=== PATIENT | female | born 1945 | race Caucasian/White ===

== ENCOUNTER 2016-11-29 19:40 | Emergency (ER) | payer MEDICARE, OTHER ==
--- NOTE | 2016-11-29 20:07 | ER Document Report ---
ED Medical Screen (RME) - General Stated Complaint: BLOOD PRESSURE ISSUE Mode of Arrival: Wheelchair Information source: Patient Notes: Pt's blood pressure has been up and down over the past several days. On 2016 patient added to her blood pressure medication regimen, patient added an increased dose of Lopressor from 25-50 mg twice a day. Patient additionally takes Micardis in the morning. Patient complains of headache and generalized weakness. Patient reports headache off and on for one week. Last night bp 192/ 70, normally pt has 135/70 bp. hx: Hypertension, emphysema, asthma, COPD I have greeted and performed a rapid initial assessment of this patient. A comprehensive ED assessment and evaluation of the patient, analysis of test results and completion of the medical decision making process will be conducted by additional ED providers. TRAVEL OUTSIDE OF THE [place] IN LAST 30 DAYS: No - Related Data Allergies/Adverse Reactions: fentanyl [Fentanyl] Allergy (Verified 03/13/15 09:57) incorrect entry hydralazine HCl [From Apresoline] Allergy (Verified 11/28/13 17:27) levofloxacin [From Levaquin] Allergy (Verified 11/28/13 17:27) sulfamethoxazole [From Septra DS] Allergy (Verified 11/28/13 17:27) trimethoprim [From Septra DS] Adverse Reaction (Verified 11/28/13 17:27) Feronal Allergy (Uncoded 03/13/15 09:57) Past Medical History - Past Medical History Cardiac Medical History: Reports: Hx Hypercholesterolemia, Hx Hypertension, Hx Heart Murmur - mild Denies: Hx Heart Attack Pulmonary Medical History: Reports: Hx Asthma, Hx Bronchitis, Hx COPD Denies: Hx Tuberculosis Neurological Medical History: Denies: Hx Cerebrovascular Accident, Hx Seizures GI Medical History: Reports: Hx Gastroesophageal Reflux Disease. Denies: Hx Hepatitis, Hx Hiatal Hernia, Hx Ulcer Musculoskeltal Medical History: Reports Hx Arthritis Psychiatric Medical History: Reports: Hx Depression Infectious Medical History: Denies: Hx Hepatitis Past Surgical History: Reports: Hx Appendectomy, Hx Section - x 2, Hx Tubal Ligation. Denies: Hx Mastectomy, Hx Open Heart Surgery, Hx Pacemaker - Immunizations Hx Diphtheria, Pertussis, Tetanus Vaccination: Yes Physical Exam - Neurological Cognition: Normal [place] Coma Scale Eye Opening: Spontaneous [place] Coma Scale Verbal: Oriented [place] Coma Scale Motor: Obeys Commands [place] Coma Scale Total: 15 Course - Re-evaluation Re-evalutation: 11/29/16 20:[address] Van regarding patient presentation, agrees with plan for CT imaging of the head given history of headaches and hypertension
[2016-11-29 21:45] LABS: ABSOLUTE BASOPHILS # (AUTO) 0.1 10^3/uL (0.0-0.2); ABSOLUTE EOSINOPHILS # (AUTO) 0.2 10^3/uL (0.0-0.6); ABSOLUTE LYMPHOCYTES (AUTO) 1.8 10^3/uL (0.5-4.7); ABSOLUTE MONOCYTES (AUTO) 0.5 10^3/uL (0.1-1.4); ABSOLUTE NEUT (AUTO) 3.3 10^3/uL (1.7-8.2); EOSINOPHILS % (AUTO) 2.6 % (0-6); HEMATOCRIT 37.8 % (36.0-47.0); HEMOGLOBIN 12.4 g/dL (12.0-15.5); HGB HCT DIFFERENCE -0.6; LYMPHOCYTES % (AUTO) 31.3 % (13-45); MEAN CORPUSCULAR HEMOGLOBIN 27.7 pg (27.0-33.4); MEAN CORPUSCULAR HGB CONC 32.7 g/dL (32.0-36.0); MEAN CORPUSCULAR VOLUME 85 fl (80-97); MONOCYTES % (AUTO) 9.3 % (3-13); RED BLOOD COUNT 4.46 10^6/uL (3.72-5.28); SEGMENTED NEUTROPHILS % (AUTO) 55.8 % (42-78); WHITE BLOOD COUNT 5.9 10^3/uL (4.0-10.5)
[2016-11-29 22:09] LABS: ALANINE AMINOTRANSFERASE 34 U/L (9-52); ALBUMIN 3.9 g/dL (3.5-5.0); ALKALINE PHOSPHATASE 68 U/L (38-126); ANION GAP 8 (5-19); ASPARTATE AMINO TRANSFERASE 28 U/L (14-36); BILIRUBIN,TOTAL 0.5 mg/dL (0.2-1.3); BLOOD UREA NITROGEN 15 mg/dL (7-20); CALCIUM 9.2 mg/dL (8.4-10.2); CARBON DIOXIDE 32 mmol/L (22-30); CHLORIDE 99 mmol/L (98-107); CREATININE RESULT 0.71 mg/dL (0.52-1.25); GLUCOSE 103 mg/dL (75-110); POTASSIUM 4.1 mmol/L (3.6-5.0); SODIUM 139.1 mmol/L (137-145); TOTAL PROTEIN 6.6 g/dL (6.3-8.2)
[2016-11-30 03:33] LABS: APPEARANCE,URINE CLEAR; BILIRUBIN,URINE NEGATIVE (NEGATIVE); GLUCOSE, URINE NEGATIVE (NEGATIVE); KETONES,URINE NEGATIVE (NEGATIVE); LEUKOCYTE ESTERASE,URINE NEGATIVE (NEGATIVE); NITRITE,URINE NEGATIVE (NEGATIVE); PROTEIN,URINE NEGATIVE (NEGATIVE); URINE SPECIFIC GRAVITY 1.006; UROBILINOGEN,URINE NEGATIVE mg/dL (<2.0)
[2016-11-30] MEDS ORDERED: CLONIDINE HCL 0.2 MG TABLET PO ONE (04:21)
--- NOTE | 2016-11-30 04:22 | ER Document Report ---
ED Blood Pressure Problem - General Chief Complaint: Blood Pressure Problem Stated Complaint: BLOOD PRESSURE ISSUE Time seen by provider: 04:21 Mode of Arrival: Wheelchair Information source: Patient TRAVEL OUTSIDE OF THE [place] IN LAST 30 DAYS: No - HPI Patient complains to provider of: High blood pressure Onset: Other - 2-3 days Onset/Duration: Waxing and waning Quality of pain: Achy Severity: Mild Pain Level: 1 Problem is: Chronic problem Pt currently taking medication for problem: Yes Associated symptoms: Headache Similar symptoms previously: Yes Recently seen / treated by doctor: Yes Notes: Patient is a 71-year-old female who presents to the emergency room complaining of high blood pressure, it is fluctuating over the past week, with higher readings than normal, she saw her primary care provider on and was advised to increase her Lopressor to 25 mg twice daily, she was previously on it once daily, she also takes Micardis, she complains of a mild frontal headache , no chest pain or shortness of breath - Related Data Allergies/Adverse Reactions: fentanyl [Fentanyl] Allergy (Verified 03/13/15 09:57) incorrect entry hydralazine HCl [From Apresoline] Allergy (Verified 11/28/13 17:27) levofloxacin [From Levaquin] Allergy (Verified 11/28/13 17:27) sulfamethoxazole [From Septra DS] Allergy (Verified 11/28/13 17:27) trimethoprim [From Septra DS] Adverse Reaction (Verified 11/28/13 17:27) Feronal Allergy (Uncoded 03/13/15 09:57) Past Medical History - General Information source: Patient - Social History Smoking Status: Unknown if Ever Smoked Family History: CAD Patient has suicidal ideation: No Patient has homicidal ideation: No - Past Medical History Cardiac Medical History: Reports: Hx Hypercholesterolemia, Hx Hypertension, Hx Heart Murmur - mild Denies: Hx Heart Attack Pulmonary Medical History: Reports: Hx Asthma, Hx Bronchitis, Hx COPD Denies: Hx Tuberculosis Neurological Medical History: Denies: Hx Cerebrovascular Accident, Hx Seizures Renal/ Medical History: Denies: Hx Peritoneal Dialysis GI Medical History: Reports: Hx Gastroesophageal Reflux Disease. Denies: Hx Hepatitis, Hx Hiatal Hernia, Hx Ulcer Musculoskeltal Medical History: Reports Hx Arthritis Psychiatric Medical History: Reports: Hx Depression Infectious Medical History: Denies: Hx Hepatitis Past Surgical History: Reports: Hx Appendectomy, Hx Section - x 2, Hx Tubal Ligation. Denies: Hx Mastectomy, Hx Open Heart Surgery, Hx Pacemaker - Immunizations Hx Diphtheria, Pertussis, Tetanus Vaccination: Yes Hx Pneumococcal Vaccination: 10/24/14 Review of Systems - Review of Systems Constitutional: No symptoms reported EENT: No symptoms reported Cardiovascular: No symptoms reported Respiratory: No symptoms reported Gastrointestinal: No symptoms reported Genitourinary: No symptoms reported Female Genitourinary: No symptoms reported Musculoskeletal: No symptoms reported Skin: No symptoms reported Hematologic/Lymphatic: No symptoms reported Neurological/Psychological: Headaches -: Yes All other systems reviewed and negative Physical Exam - Vital signs Vitals: Temp Pulse Resp BP Pulse Ox 97.9 F 69 20 169/65 H 100 11/29/16 19:58 11/29/16 19:58 11/29/16 19:58 11/29/16 19:58 11/29/16 19:58 Interpretation: Hypertensive - General General appearance: Appears well, Alert - HEENT Head: Normocephalic, Atraumatic Eyes: Normal Pupils: PERRL - Respiratory Respiratory status: No respiratory distress Chest status: Nontender Breath sounds: Normal Chest palpation: Normal - Cardiovascular Rhythm: Regular Heart sounds: Normal auscultation Murmur: No - Abdominal Inspection: Normal Distension: No distension Bowel sounds: Normal Tenderness: Nontender Organomegaly: No organomegaly - Back Back: Normal, Nontender - Extremities General upper extremity: Normal inspection, Nontender, Normal color, Normal ROM , Normal temperature General lower extremity: Normal inspection, Nontender, Normal color, Normal ROM , Normal temperature, Normal weight bearing. No: Nazario's sign - Neurological Neuro grossly intact: Yes Cognition: Normal Orientation: AAOx4 Francisca Coma Scale Eye Opening: Spontaneous [place] Coma Scale Verbal: Oriented [place] Coma Scale Motor: Obeys Commands Franc[place] Coma Scale Total: 15 Speech: Normal Motor strength normal: LUE, RUE, LLE, RLE Sensory: Normal - Psychological Associated symptoms: Normal affect, Normal mood - Skin Skin Temperature: Warm Skin Moisture: Dry Skin Color: Normal Course - Re-evaluation Re-evalutation: 11/30/16 05:59 Patient resting comfortably, has a mild headache, CT scan and lab results which are unremarkable were discussed with patient at bedside, patient was given a dose of clonidine, her blood pressure was reduced, she was advised to follow-up with her primary care provider for further medication adjustments regarding her blood pressure, patient acknowledges understanding and agreement with this plan - Vital Signs Vital signs: Temp Pulse Resp BP Pulse Ox 98.3 F 68 16 139/59 H 96 11/30/16 05:15 11/30/16 05:15 11/30/16 05:15 11/30/16 05:15 11/30/16 05:15 - Laboratory Result Diagrams: 11/29/16 20:15 11/29/16 20:15 Laboratory results interpreted by me: 11/29/16 20:15 Carbon Dioxide 32 H - Diagnostic Test Radiology reviewed: Image reviewed, Reports reviewed Discharge - Discharge Clinical Impression: Hypertension Qualifiers: Hypertension type: essential hypertension Qualified Code(s): I10 - Essential ( primary) hypertension Condition: Stable Disposition: HOME, SELF-CARE Instructions: High Blood Pressure, Requiring Treatment ([facility]), High Blood Pressure ([facility]) Additional Instructions: Follow up with your primary care provider in one to 2 days. Return to the emergency room immediately if symptoms worsen or any additional concerns. Referrals: LUCAS BROWN MD [Primary Care Provider] - Follow up as needed
[2016-11-30 05:19] VITALS: BP 139/59
== END 2016-11-30 05:21 | disposition home or self-care (01) ==
LOC: ER 19:40
DX: I10 Essential (primary) hypertension (principal); R51 Headache; J44.9 Chronic obstructive pulmonary disease, unspecified; J45.909 Unspecified asthma, uncomplicated; Z79.899 Other long term (current) drug therapy; Z88.8 Allergy status to other drugs, medicaments and biological substances; Z88.1 Allergy status to other antibiotic agents
CPT/HCPCS: 99284; 36415; 85025; 80053; 81001; 70450; A9270

== ENCOUNTER → 2017-02-23 | Outpatient (CLI) | payer MEDICARE, OTHER | LOC: RAD 12:54 | PROVIDERS: ATTEND Internal Medicine Critical Care Medicine | DX: R91.1 Solitary pulmonary nodule (principal); J43.9 Emphysema, unspecified; R06.00 Dyspnea, unspecified; R04.2 Hemoptysis; R09.02 Hypoxemia; Z87.01 Personal history of pneumonia (recurrent) | CPT/HCPCS: 71250 ==

== ENCOUNTER → 2017-06-08 | Outpatient (CLI) | payer MEDICARE, OTHER ==
--- NOTE | 2017-06-10 02:11 | WOMENS IMAGING REPORT ---
EXAM DESCRIPTION: BILAT SCREENING MAMMO W/CAD COMPLETED DATE/TIME: 06/08/2017 11:27 am REASON FOR STUDY: ROUTINE SCREENING; Z12.31 Z12.31 ENCNTR SCREEN MAMMOGRAM FOR MALIGNANT NEOPLASM O F JUAN DIEGO COMPARISON: Multiple since 2013 TECHNIQUE: Standard craniocaudal and mediolateral oblique views of each breast recorded using Scancella l acquisition. LIMITATIONS: None. FINDINGS: Findings present which are benign by mammographic criteria. No suspicious masses, calcifi cations or architectural distortion. Pertinent benign findings: Stable bilateral benign breast parenchymal calcifications. Read with the assistance of CAD. .[facility] - R2 Cenova Version 1.3 .[facility] - R2 Cenova Version 1.3 .[facility] - R2 Cenova Version 2.4 .[facility] - R2 Cenova Version 2.4 .[facility] - R2 Defensive Line Coach Version 9.2 Benign mammographic findings may include one or more of the following: Smooth masses, popcorn/rim/co arse calcifications, asymmetries, post-procedure changes, and lesions with long-standing stability. IMPRESSION: BENIGN MAMMOGRAPHIC FINDINGS. BIRADS 2 BREAST DENSITY: b. There are scattered areas of fibroglandular density. BIRAD: 2 BENIGN FINDING(S) RECOMMENDATION: ROUTINE SCREENING Please consider bilateral screening tomosynthesis in May 2018 COMMENT: The patient has been notified of the results by letter per [place] requirements. Additional no tification policies are in place for contacting patient with suspicious or incomplete findings. Quality ID #[id number]: The [employer] recommends an annual screening mammogram for women aged 40 years or over. This facility utilizes a reminder system to ensure that all patients receive reminder letters, and/or direct phone calls for appointments. This includes reminders for routine scr eening mammograms, diagnostic mammograms, or other Breast Imaging Interventions when appropriate. Th is patient will be placed in the appropriate reminder system. The [employer] (ACR) has developed recommendations for screening MRI of the breast s in certain patient populations, to be used in conjunction with mammography. Breast MRI surveillanc e may be appropriate for women with more than 20% lifetime risk of developing breast cancer as deter mined by genetic testing, significant family history of the disease, or history of mantle radiation f or Hodgkins Disease. ACR Practice Guidelines 2008. TECHNICAL DOCUMENTATION: FINDING NUMBER: (1) ASSESSMENT: (1) JOB ID: [id number] [employer]- All Rights Reserved
== END ==
LOC: WI 10:54
PROVIDERS: ATTEND Internal Medicine
DX: Z12.31 Encounter for screening mammogram for malignant neoplasm of breast (principal)
CPT/HCPCS: 77067; G0202

== ENCOUNTER → 2017-12-28 | Outpatient (CLI) | payer MEDICARE, OTHER ==
[2017-12-28 14:17] LABS: ABSOLUTE BASOPHILS # (AUTO) 0.1 10^3/uL (0.0-0.2); ABSOLUTE EOSINOPHILS # (AUTO) 0.1 10^3/uL (0.0-0.6); ABSOLUTE MONOCYTES (AUTO) 0.5 10^3/uL (0.1-1.4); ABSOLUTE NEUT (AUTO) 3.7 10^3/uL (1.7-8.2); BASOPHILS % (AUTO) 1.4 % (0-2); EOSINOPHILS % (AUTO) 1.9 % (0-6); HEMOGLOBIN 10.5 g/dL (12.0-15.5); LYMPHOCYTES % (AUTO) 30.6 % (13-45); MEAN CORPUSCULAR HEMOGLOBIN 24.3 pg (27.0-33.4); MEAN CORPUSCULAR HGB CONC 31.7 g/dL (32.0-36.0); MEAN CORPUSCULAR VOLUME 77 fl (80-97); MONOCYTES % (AUTO) 7.9 % (3-13); PLATELET COUNT 225 10^3/uL (150-450); RED CELL DISTRIBUTION WIDTH 16.3 % (11.5-14.0); SEGMENTED NEUTROPHILS % (AUTO) 58.2 % (42-78); TOTAL CELLS COUNTED % (AUTO) 100 %; WHITE BLOOD COUNT 6.4 10^3/uL (4.0-10.5)
[2017-12-28 14:40] LABS: ANION GAP 12 (5-19); BLOOD UREA NITROGEN 13 mg/dL (7-20); CALCIUM 9.5 mg/dL (8.4-10.2); CARBON DIOXIDE 31 mmol/L (22-30); CHLORIDE 97 mmol/L (98-107); GLUCOSE 120 mg/dL (75-110); POTASSIUM 4.2 mmol/L (3.6-5.0); SODIUM 139.5 mmol/L (137-145)
[2017-12-28 15:12] LABS: INTERNATIONAL RATION (INR) 0.85; PROTHROMBIN TIME 12.2 SEC (11.4-15.4)
== END ==
LOC: OD 13:19
PROVIDERS: ATTEND Internal Medicine
DX: R91.8 Other nonspecific abnormal finding of lung field (principal); J15.212 Pneumonia due to Methicillin resistant Staphylococcus aureus; J43.9 Emphysema, unspecified; R05 Cough; J30.9 Allergic rhinitis, unspecified; R06.00 Dyspnea, unspecified
CPT/HCPCS: 36415; 80048; 85025; 85610

== ENCOUNTER 2017-12-29 06:09 | Day surgery (SDC) | payer MEDICARE, OTHER ==
[2017-12-29] MEDS ORDERED: LIDOCAINE 2% INJ (20 MG/ML) 20 ML MDV ONE (07:17)
[2017-12-29] MEDS ORDERED: EPINEPHRINE INJ/PF 1 MG/1 ML AMPULE ONE (07:17)
[2017-12-29] MEDS ORDERED: LIDOCAINE 2% JELLY 30 ML TUBE ONE (07:17)
[2017-12-29 07:18] LABS: CREATINE KINASE MB 2.29 ng/mL (<4.55)
[2017-12-29] MEDS ORDERED: FENTANYL CITRATE INJ/PF 100 MCG/2 ML AMPUL ONE (07:18)
[2017-12-29] MEDS ORDERED: FLUMAZENIL INJ 0.5 MG/5 ML VIAL ONE (07:18)
[2017-12-29] MEDS ORDERED: NALOXONE HCL INJ/PF 0.4 MG/1 ML SDV ONE (07:18)
[2017-12-29 07:19] LABS: TROPONIN I < 0.012 ng/mL
[2017-12-29] MEDS ORDERED: EPINEPHRINE INJ 1 MG/10 ML DISP.SYRIN ONE (07:19)
[2017-12-29] MEDS: MIDAZOLAM 2 MG/2 ML INJ ONE ×16 (08:48→09:23)
--- NOTE | 2017-12-29 10:29 | OPERATIVE REPORT E ---
Operative Report NAME: TORRES LIRA : 1945 AGE: 72Y DATE OF SURGERY: 12/29/2017 ROOM: INDICATIONS: Patient is a 72-year-old female with a history of pulmonary nodules bilateral, chronic cough, intermittent Pseudomonas respiratory infection, and history of MRSA infection. Came in with pulmonary nodules bilateral, small with significant nodule on the left lower lobe abut 2 cm. Consent was obtained from the patient. Patient verbalized understanding of the indications, risks, and potential complications of procedure. SURGEON: LITZY RAGSDALE M.D. PROCEDURE: Patient was connected to the cardiac surgeon, pulse oximetry, respiratory monitor, blood pressure monitor, and heart rate monitor. Reviewed allergy medications. There was a notable fentanyl allergy. Questioned the patient about possible use of fentanyl products. Patient denied any possible use in the past. Per conversation, the notation of fentanyl allergy was most likely erroneous. Patient never had a fentanyl patch and never used fentanyl in the past. Patient was given 2% lidocaine solution via nebulizer, about 5 mL and given lidocaine solution 2%, 3 mL via atomizer and then 2% lidocaine gel was applied to the posterior pharyngeal wall and to the tonsillar pharyngeal area. Flexible bronchoscope was then inserted through the mouthguard. Lidocaine 1% aliquots of 2 mL was administered to the vocal cords, trachea, malcolm, right main stem bronchus, and left main stem bronchus as the flexible bronchoscope was advanced. Versed at increments of 0.5 mg was given for a total dose of 8 mg and fentanyl was given IV 25 mcg. There was no allergic reaction noted. Bronchial washing was performed on both lungs. Bronchoalveolar lavage was performed on the left lower lobe basal segment. Bronchial washing was performed on the left upper lobe and the left lower lobe and the right lower lobe. Polypoid bronchial lesion was noted on the distal end of the right main stem bronchus. Pictures were taken. The polypoid nodule does not appear to be bleeding. It may need to be removed at a tertiary care center. Oxygen was titrated during the procedure from 2 L up to 6 L and then titrated down after the bronchoscopy. There are no adverse events noted. Pulmonary followup will be done in 1 week. Patient will be referred to [facility] for possible resection of polypoid lesion on the right main stem bronchus. DICTATING PHYSICIAN: LITZY RAGSDALE MD,HALI,MPH [id number] PHY#: [id number] ID: [id number] JOB#: [id number] ACCT: [id number] cc:LITZY RAGSDALE M.D. > LATESHA
--- NOTE | 2017-12-29 10:34 | EKG REPORT ---
SEVERITY:- NORMAL ECG - SINUS RHYTHM : Confirmed by: Sathish Dillon 29-Dec-2017 10:33:31
[2017-12-29 11:18] VITALS: BP 116/42
== END 2017-12-29 11:00 | disposition home or self-care (01) ==
LOC: OROUT 06:09
PROVIDERS: ATTEND Internal Medicine Critical Care Medicine
DX: R91.8 Other nonspecific abnormal finding of lung field (principal); J43.9 Emphysema, unspecified; R91.1 Solitary pulmonary nodule; R06.00 Dyspnea, unspecified; R05 Cough; R07.9 Chest pain, unspecified; Z79.51 Long term (current) use of inhaled steroids; Z79.899 Other long term (current) drug therapy; Z87.891 Personal history of nicotine dependence; Z87.01 Personal history of pneumonia (recurrent); Z86.14 Personal history of Methicillin resistant Staphylococcus aureus infection
CPT/HCPCS: 31624; 36415; 82553; 84484; 87015; 87070; 87077; 87101; 87116; 87186; 87205; 87206; 88104; 93005; 93010; J0171; J2250; J2310; J3010; J3490

== ENCOUNTER → 2018-01-29 | Outpatient (CLI) | payer MEDICARE, OTHER ==
--- NOTE | 2018-01-30 16:48 | RADIOLOGY REPORT (SQ) ---
EXAM DESCRIPTION: PET CT SKULL/THIGH COMPLETED DATE/TIME: 01/29/2018 8:26 pm REASON FOR STUDY: SOLITARY PULMONARY NODULE R91.1 SOLITARY PULMONARY NODULE D49.1 NEOPLASM OF UNSP ECIFIED BEHAVIOR OF RESPIRATORY SYSTEM COMPARISON: Prior CT chest 10/06/2009, 04/23/2010, 03/01/2011, 11/02/2011, 09/04/2013, 09/25/2014, , 02/23/2017 at [facility] RADIONUCLIDE AND DOSE: 11.2 mCi F18 FDG The route of agent administration: Intravenous FASTING BLOOD SUGAR: 105 mg/dl CONTRAST TYPE AND DOSE: No CT contrast given. TECHNIQUE: Blood glucose level was verified. Above dose of FDG was injected intravenously. 2-D seg mented attenuation correction images were obtained from the base of the skull to the midthighs. Nonc ontrast CT images were obtained for attenuation correction and fusion with emission images. CT image s were performed without oral or intravenous contrast and are not sensitive for parenchymal lesions. A series of overlapping emission PET images were obtained. [facility] by the radiologist. Images stored on PACS. LIMITATIONS: None. FINDINGS: HEAD AND NECK: No areas of abnormal metabolic activity in the soft tissues of the head and neck. CHEST: Patient has obstructive lung disease, with a stable small spiculated scar, non metabolic 8 mm in diameter right upper lobe axial image 74, unchanged since 2009 CT. In the posterior right upper lobe adjacent to the major fissure, an 8 mm alveolar density is present on axial image 83, with SUV of 2.0. This may represent a small focus of pneumonia. This is new comp ared to previous studies. At the right hilum, and heavily calcified 14 mm lymph node is present, bulging into the ventral edge of the distal right mainstem bronchus. This is unchanged since 2009. However, there is metabolic ac tivity associated with the lymph node, with SUV of 3.9. In the anterior left upper lobe, a 1.6 cm alveolar density is present on axial image 77 with SUV of 1 .9. This may represent a small focus of pneumonia. This is new compared to previous studies In the posterior left upper lobe, there is dense consolidation versus pulmonary nodule on axial image 77. This measures 3 x 2.4 cm in size with SUV of 11.7. This is worrisome for malignancy, new felix red to previous studies. No metabolically active left hilar or mediastinal lymph nodes are identifie d. No pleural effusions. No pneumothorax ABDOMEN AND PELVIS: No areas of abnormal metabolic activity in the abdomen or pelvis. Expected physi ologic activity is present in the genitourinary system and bowel. PROXIMAL LOWER EXTREMITIES: No areas of abnormal metabolic activity in the soft tissues of the lower extremities. BONES: No abnormal metabolic activity in the visualized skeleton. ADDITIONAL CT FINDINGS: Very heavily calcified right carotid bifurcation, coronary artery calcificati ons and calcified aortic valve. Calcified splenic granulomata. Degenerative changes lumbar spine. OTHER: Liver background activity 2.1 SUV. Blood pool background activity 1.5 SUV. IMPRESSION: Posterior left upper lobe 3 x 2.4 cm hypermetabolic mass worrisome for malignancy. TECHNICAL DOCUMENTATION: JOB ID: [id number] [employer]- All Rights Reserved Reading location - IP/workstation name: [facility]
== END ==
LOC: RAD 16:40
PROVIDERS: ATTEND Internal Medicine Critical Care Medicine
DX: R91.1 Solitary pulmonary nodule (principal); R91.8 Other nonspecific abnormal finding of lung field; Z87.01 Personal history of pneumonia (recurrent)
CPT/HCPCS: 78815; A9552